=== PATIENT | female | born 1990 | race American Indian/Alaskan Native ===

== ENCOUNTER 2016-09-30 00:30 | Emergency (ER) | payer MEDICAID, OTHER ==
[2016-09-30 02:14] LABS: Basophils % (Auto) 0.7 % (0.0-1.8); Hematocrit 39.6 % (30.3-42.9); Hemoglobin 13.2 gm/dl (10.1-14.3); Mean Corpuscular HGB Conc 33 % (30-34); Mean Corpuscular Hemoglobin 31 pg (28-32); Mean Corpuscular Volume 92 fl (79-97); Platelet Count 284 K/mm3 (140-440); Red Blood Count 4.29 M/mm3 (3.65-5.03); White Blood Count 6.8 K/mm3 (4.5-11.0)
--- NOTE | 2016-09-30 03:15 | Ultrasound Report ---
FINAL REPORT PROCEDURE: US OB \T\lt; = 14 WEEKS FETUS TECHNIQUE: Real-time transabdominal and transvaginal sonography of the uterus, placenta, amniotic fluid, adnexa, and fetus was performed with image documentation. Measurements were obtained to determine age/size. M-mode Doppler was used to document heartbeat. CPT 22942 and 62096 HISTORY: vaginal bleeding COMPARISON: No prior studies are available for comparison. FINDINGS: ADDITIONAL GESTATION: None. CRL: 6.5 mm, which corresponds to a gestational age of: 6 weeks, 3 days. Yolk Sac: Normal. Embryonic Cardiac Activity: 118 beats per minute Gestational Sac: Normal. Amniotic fluid: Normal. Cervix: Normal. Right Ovary: Normal. Left Ovary: Normal. Estimated delivery date: 05/23/2017 Uterus and adnexa: Normal. IMPRESSION: 1. Single live intrauterine gestation at approximately 6 weeks, 3 days. 2. EDC by US 05/23/2017 3. Complete anatomic survey at 18-20 weeks suggested.
--- NOTE | 2016-09-30 03:16 | Ultrasound Report ---
FINAL REPORT PROCEDURE: US OB \T\lt; = 14 WEEKS FETUS TECHNIQUE: Real-time transabdominal and transvaginal sonography of the uterus, placenta, amniotic fluid, adnexa, and fetus was performed with image documentation. Measurements were obtained to determine age/size. M-mode Doppler was used to document heartbeat. CPT 13528 and 81344 HISTORY: vaginal bleeding COMPARISON: No prior studies are available for comparison. FINDINGS: ADDITIONAL GESTATION: None. CRL: 6.5 mm, which corresponds to a gestational age of: 6 weeks, 3 days. Yolk Sac: Normal. Embryonic Cardiac Activity: 118 beats per minute Gestational Sac: Normal. Amniotic fluid: Normal. Cervix: Normal. Right Ovary: Normal. Left Ovary: Normal. Estimated delivery date: 05/23/2017 Uterus and adnexa: Normal. IMPRESSION: 1. Single live intrauterine gestation at approximately 6 weeks, 3 days. 2. EDC by US 05/23/2017 3. Complete anatomic survey at 18-20 weeks suggested.
[2016-09-30] MEDS ORDERED: ZOFRAN ODT ONE (04:26)
[2016-09-30] MEDS ORDERED: ZOFRAN ODT PO ONE (04:28)
[2016-09-30 05:14] LABS: Bilirubin,Urine NEG (Negative); Blood,Urine NEG (Negative); Ketones,Urine NEG (Negative); Leukocyte Esterase,Urine NEG (Negative); Mucus,Urine 1+ /HPF; Nitrite,Urine NEG (Negative); Protein,Urine <15 mg/dL mg/dL (Negative); Urobilinogen,Urine < 2.0 mg/dL (<2.0); WBC,Urine < 1.0 /HPF (0.0-6.0)
--- NOTE | 2016-09-30 06:28 | Emergency Department Report ---
ED Female HPI - General Chief complaint: Vaginal Bleeding Stated complaint: W/SPOTTING Time Seen by Provider: 09/30/16 06:22 Source: patient, RN notes reviewed Mode of arrival: Ambulatory Limitations: No Limitations - History of Present Illness Initial comments: This is a 26-year-old female. She is previously unknown to me. She is 6, para 2. Last menstrual period is this previous July. She does not currently have a private [facility] physician. She denies chronic medical conditions, denies history of abdominal surgeries. She presents to the ER with cramping and vaginal bleeding. It started this morning. She also describes 7 episodes of nonbloody, nonbilious emesis. No sore throat, no headache, no neck pain, no chest pain. She also describes a few episodes of loose watery diarrhea. She denies irritative and obstructive urinary symptoms. MD Complaint: vaginal bleeding -: Gradual Location: suprapubic Severity: mild Quality: cramping Consistency: intermittent Improves with: other (pain increases with palpation and range of motion. Decreases with rest.) Are you Now?: Yes Associated Symptoms: denies other symptoms, vaginal bleeding, nausea/vomiting. denies: vaginal discharge - Related Data Sexually active: Yes Previous Rx's Medication Instructions Recorded Last Taken Type Cyclobenzaprine [Flexeril 10mg] 10 mg PO TID PRN #10 tablet 08/09/13 Unknown Rx HYDROcodone/APAP 5-325 [[place] 1 each PO Q6HR PRN #10 tablet 08/09/13 Unknown Rx 5-325 mg TAB] Ibuprofen [Motrin] 800 mg PO Q8H PRN #20 tablet 08/09/13 Unknown Rx Doxylamine/Pyridoxine HCl 1 each PO QHS PRN #30 tablet. 09/30/16 Unknown Rx [Conrad Blanchard 10-10 mg Tablet] Ryann Root [Ryann] 250 mg PO QID PRN #60 capsule 09/30/16 Unknown Rx Vit W-Ca,Fe,FA(<1 mg) 1 each PO QDAY #30 tablet 09/30/16 Unknown Rx [ Vitamins] Allergies Allergy/AdvReac Type Severity Reaction Status Date / Time No Known Allergies Allergy Verified 09/30/16 04:35 ED Review of Systems ROS: Stated complaint: W/SPOTTING Other details as noted in HPI Constitutional: denies: fever Eyes: denies: eye discharge ENT: denies: epistaxis Respiratory: denies: cough Cardiovascular: denies: chest pain Gastrointestinal: abdominal pain Genitourinary: as per HPI Musculoskeletal: as per HPI Skin: as per HPI Neurological: as per HPI Psychiatric: as per HPI Hematological/Lymphatic: as per HPI ED Past Medical Hx - Past Medical History Previous Medical History?: No - Surgical History Past Surgical History?: No - Social History Smoking Status: Current Every Day Smoker - Medications Home Medications: Home Medications Medication Instructions Recorded Confirmed Last Taken Type Cyclobenzaprine [Flexeril 10mg] 10 mg PO TID PRN #10 tablet 08/09/13 Unknown Rx HYDROcodone/APAP 5-325 [[place] 1 each PO Q6HR PRN #10 tablet 08/09/13 Unknown Rx 5-325 mg TAB] Ibuprofen [Motrin] 800 mg PO Q8H PRN #20 tablet 08/09/13 Unknown Rx Doxylamine/Pyridoxine HCl 1 each PO QHS PRN #30 tablet.dr 09/30/16 Unknown Rx [Diclegis Dr 10-10 mg Tablet] Ryann Root [Ryann] 250 mg PO QID PRN #60 capsule 09/30/16 Unknown Rx Vit W-Ca,Fe,FA(<1 mg) 1 each PO QDAY #30 tablet 09/30/16 Unknown Rx [ Vitamins] ED Physical Exam - General Limitations: No Limitations General appearance: alert, in no apparent distress - Head Head exam: Present: atraumatic, normocephalic - Eye Eye exam: Present: normal appearance, EOMI. Absent: nystagmus - ENT ENT exam: Present: normal exam, normal orophraynx, mucous membranes moist, normal external ear exam - Neck Neck exam: Present: normal inspection, full ROM. Absent: tenderness, meningismus - Respiratory Respiratory exam: Present: normal lung sounds bilaterally. Absent: respiratory distress, wheezes, rales, rhonchi, stridor, chest wall tenderness, accessory muscle use, decreased breath sounds, prolonged expiratory - Cardiovascular Cardiovascular Exam: Present: normal rhythm, bradycardia, normal heart sounds. Absent: systolic murmur, diastolic murmur, rubs, gallop - GI/Abdominal GI/Abdominal exam: Present: soft, normal bowel sounds. Absent: distended, tenderness, guarding, rebound, rigid, pulsatile mass - External exam: Present: normal external exam Speculum exam: Present: normal speculum exam. Absent: cervical discharge, vaginal bleeding, foreign body Bi-manual exam: Present: normal bi-manual exam, other (escorted by ALEM Nelson). Absent: cervical motion tendernes, adnexal tenderness, adnexal mass - Extremities Exam Extremities exam: Present: normal inspection, full ROM. Absent: calf tenderness - Back Exam Back exam: Present: normal inspection, full ROM. Absent: tenderness, CVA tenderness (R), CVA tenderness (L), muscle spasm, paraspinal tenderness, vertebral tenderness - Neurological Exam Neurological exam: Present: alert, oriented X3, normal gait, other (Extraocular movements intact. Tongue midline. No facial droop. Facial sensation intact to light touch in the V1, V2, V3 distribution bilaterally. 5 and 5 strength in 4 extremities.. Sensation is intact to light touch in 4 extremities.). Absent : motor sensory deficit - Psychiatric Psychiatric exam: Present: normal affect, normal mood - Skin Skin exam: Present: warm, dry, intact, normal color. Absent: rash ED Course Vital Signs 09/30/16 09/30/16 09/30/16 01:03 05:58 07:19 Temperature 98.9 F Pulse Rate 57 L 52 L 54 L Respiratory 20 18 18 Rate Blood Pressure 119/52 Blood Pressure 91/45 106/44 [Right] O2 Sat by Pulse 100 100 100 Oximetry ED Medical Decision Making - Lab Data Result diagrams: 09/30/16 01:21 Vital Signs 09/30/16 09/30/16 01:03 05:58 Temperature 98.9 F Pulse Rate 57 L 52 L Respiratory 20 18 Rate Blood Pressure 119/52 Blood Pressure 91/45 [Right] O2 Sat by Pulse 100 100 Oximetry Lab Results 09/30/16 09/30/16 09/30/16 Range/Units 01:21 01:21 01:21 WBC 6.8 (4.5-11.0) K/mm3 RBC 4.29 (3.65-5.03) M/mm3 Hgb 13.2 (10.1-14.3) gm/dl Hct 39.6 (30.3-42.9) % MCV 92 (79-97) fl MCH 31 (28-32) pg MCHC 33 (30-34) % RDW 13.0 L (13.2-15.2) % Plt Count 284 (140-440) K/mm3 Lymph % (Auto) 32.1 (13.4-35.0) % Becker % (Auto) 9.0 H (0.0-7.3) % Eos % (Auto) 1.0 (0.0-4.3) % Baso % (Auto) 0.7 (0.0-1.8) % Lymph # 2.2 (1.2-5.4) K/mm3 Becker # 0.6 (0.0-0.8) K/mm3 Eos # 0.1 (0.0-0.4) K/mm3 Baso # 0.0 (0.0-0.1) K/mm3 Seg Neutrophils % 57.2 (40.0-70.0) % Seg Neutrophils # 3.9 (1.8-7.7) K/mm3 HCG, Quant 14256 H (0-4) mIU/mL Urine Color (Yellow) Urine Turbidity (Clear) Urine pH (5.0-7.0) Ur Specific [place] (1.003-1.030) Urine Protein (Negative) mg/dL Urine Glucose (UA) (Negative) mg/dL Urine Ketones (Negative) mg/dL Urine Blood (Negative) Urine Nitrite (Negative) Urine Bilirubin (Negative) Urine Urobilinogen (<2.0) mg/dL Ur Leukocyte Esterase (Negative) Urine WBC (Auto) (0.0-6.0) /HPF Urine RBC (Auto) (0.0-6.0) /HPF U Epithel Cells (Auto) (0-13.0) /HPF Urine Mucus /HPF Blood Type O POSITIVE Antibody Screen TNR GILBERTO Antibody Screen Negative 09/30/16 Range/Units 04:55 WBC (4.5-11.0) K/mm3 RBC (3.65-5.03) M/mm3 Hgb (10.1-14.3) gm/dl Hct (30.3-42.9) % MCV (79-97) fl MCH (28-32) pg MCHC (30-34) % RDW (13.2-15.2) % Plt Count (140-440) K/mm3 Lymph % (Auto) (13.4-35.0) % Becker % (Auto) (0.0-7.3) % Eos % (Auto) (0.0-4.3) % Baso % (Auto) (0.0-1.8) % Lymph # (1.2-5.4) K/mm3 Becker # (0.0-0.8) K/mm3 Eos # (0.0-0.4) K/mm3 Baso # (0.0-0.1) K/mm3 Seg Neutrophils % (40.0-70.0) % Seg Neutrophils # (1.8-7.7) K/mm3 HCG, Quant (0-4) mIU/mL Urine Color Yellow (Yellow) Urine Turbidity Clear (Clear) Urine pH 6.0 (5.0-7.0) Ur Specific [place] 1.030 (1.003-1.030) Urine Protein <15 mg/dl (Negative) mg/dL Urine Glucose (UA) Neg (Negative) mg/dL Urine Ketones Neg (Negative) mg/dL Urine Blood Neg (Negative) Urine Nitrite Neg (Negative) Urine Bilirubin Neg (Negative) Urine Urobilinogen < 2.0 (<2.0) mg/dL Ur Leukocyte Esterase Neg (Negative) Urine WBC (Auto) < 1.0 (0.0-6.0) /HPF Urine RBC (Auto) 1.0 (0.0-6.0) /HPF U Epithel Cells (Auto) 1.0 (0-13.0) /HPF Urine Mucus 1+ /HPF Blood Type Antibody Screen GILBERTO Antibody Screen - Radiology Data Radiology results: report reviewed, image reviewed Transvaginal ultrasound demonstrates a single live intrauterine gestation at 6 weeks and 3 days. - Medical Decision Making Differential diagnosis: Threatened miscarriage, urinary tract infection, enteritis, nausea and vomiting of Assessment and plan: 22-year-old female with reported history of cramping, vaginal bleeding, nausea, vomiting and diarrhea. She is afebrile, with reassuring vital signs, currently her blood pressure is 105/54. She is tolerating the feeds, her physical exam is benign, her gynecologic exam is benign. She will be started on appropriate nausea medication, vitamins, and she is instructed to follow-up with an outpatient radiagraph operator. She will be discharged at this time, she is tolerating liquid feeds. Return precautions are reviewed. Critical care attestation.: If time is entered above; I have spent that time in minutes in the direct care of this critically ill patient, excluding procedure time. ED Disposition Clinical Impression: Miscarriage Disposition: DC-01 TO HOME OR SELFCARE Is pt being admited?: No Does the pt Need Aspirin: No Condition: Stable Instructions: Threatened Miscarriage (ED) Additional Instructions: Rest and avoid heavy lifting. Do not engage in sexual activity or vigorous physical activity until cleared by an [facility] doctor. Follow up with an [facility] doctor as soon as possible to initiate care. Take the nausea medication and vitamins as directed. Return to the ER right away with new pain, worsened pain, migration of pain, bleeding more than 2 pads soaked through and through per hour, dizziness, lightheadedness, chest pain, shortness of breath, confusion. Prescriptions: Doxylamine/Pyridoxine HCl [oCnrad Blanchard 10-10 mg Tablet] 1 each PO QHS PRN #30 tablet. PRN Reason: Nausea Ryann Root [Ryann] 250 mg PO QID PRN #60 capsule PRN Reason: Nausea Vit W-Ca,Fe,FA(<1 mg) [ Vitamins] 1 each PO QDAY #30 tablet Referrals: PRIMARY CAREMD [Primary Care Provider] - 3-5 Days [facility] [Provider Group] - 3-5 Days [facility] [[facility]] - 3-5 Days [facility] [Provider Group] - 3-5 Days Forms: Work/School Release Form(ED)
[2016-09-30 07:24] VITALS: BP 106/44
== END 2016-09-30 07:23 | disposition home or self-care (01) ==
LOC: ED 00:30
DX: O03.9 Complete or unspecified spontaneous abortion without complication (principal); F17.200 Nicotine dependence, unspecified, uncomplicated
CPT/HCPCS: 36415; 76801; 76817; 81001; 84702; 85025; 86850; 86900; 86901; Q0162

== ENCOUNTER 2017-10-07 15:33 | Emergency (ER) | payer OTHER ==
--- NOTE | 2017-10-07 17:06 | Emergency Department Report ---
ED General Adult HPI - General Chief complaint: Extremity Injury, Lower Stated complaint: RIGHT LEG SWOLLEN/LOWER BACK PAIN Time Seen by Provider: 10/07/17 16:53 Source: patient Mode of arrival: Ambulatory Limitations: No Limitations - History of Present Illness Initial comments: Patient reports that her right leg is swollen since Friday. She said she has 2 jobs that she has a stent in her feet a lot. 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 She is also complaining of lower back pain. Her last menstrual period was 08/04/2016 and she is requesting a test also. Her leg pain is 7 out of 10 and achy. She said it goes down when she puts her legs up but pain is better with rest and worse with walking. Denies any nausea or vomiting. Denied any numbness certainly into her extremities. Denies any loss of bowel or bladder function.. Pain is achy and intermittent. No medication taken prior to coming to the emergency room. She denies any personal history of blood clot or any family history of blood clot. She denies any clotting disorder. Denies any fever or chills. Denies any chest pain or shortness of breath. Denies any long distance travel or any recent convalescent. MD Complaint: right leg pain and lower back pain Onset/Timin -: week(s) Location: back, right, lower extremity Radiation: non-radiation Severity scale (0 -10): 10 Quality: aching Consistency: intermittent Improves with: rest Worsens with: movement Associated Symptoms: denies: confusion, chest pain, cough, diaphoresis, fever/ chills, headaches, loss of appetite, malaise, nausea/vomiting, rash, seizure, shortness of breath, syncope, weakness Treatments Prior to Arrival: none - Related Data Previous Rx's Medication Instructions Recorded Last Taken Type Cyclobenzaprine [Flexeril 10mg] 10 mg PO TID PRN #10 tablet 08/09/13 Unknown Rx HYDROcodone/APAP 5-325 [[place] 1 each PO Q6HR PRN #10 tablet 08/09/13 Unknown Rx 5-325 mg TAB] Ibuprofen [Motrin] 800 mg PO Q8H PRN #20 tablet 08/09/13 Unknown Rx Doxylamine Succinate/Vit B6 1 each PO QHS PRN #30 tablet. 09/30/16 Unknown Rx [Conrad Blanchard 10-10 mg Tablet] Ryann Root [Ryann] 250 mg PO QID PRN #60 capsule 09/30/16 Unknown Rx Vit Calc,Iron,Folic 1 each PO QDAY #30 tablet 09/30/16 Unknown Rx [ Vitamins] Ibuprofen [Motrin] 600 mg PO Q8H PRN #12 tablet 10/07/17 Unknown Rx Allergies Allergy/AdvReac Type Severity Reaction Status Date / Time No Known Allergies Allergy Verified 10/07/17 15:37 ED Review of Systems ROS: Stated complaint: RIGHT LEG SWOLLEN/LOWER BACK PAIN Other details as noted in HPI Constitutional: denies: chills, fever Eyes: denies: eye pain, eye discharge, vision change ENT: denies: ear pain, throat pain Respiratory: denies: cough, shortness of breath, wheezing Cardiovascular: edema. denies: chest pain, palpitations, syncope Gastrointestinal: denies: abdominal pain, nausea, vomiting, diarrhea, constipation, hematemesis Genitourinary: abnormal menses. denies: urgency, dysuria, frequency, hematuria , discharge Musculoskeletal: back pain, arthralgia. denies: joint swelling Skin: denies: rash, lesions Neurological: denies: headache, weakness, paresthesias, abnormal gait, vertigo ED Past Medical Hx - Past Medical History Previous Medical History?: No - Surgical History Past Surgical History?: No - Family History Family history: hypertension - Social History Smoking Status: Current Every Day Smoker Substance Use Type: Alcohol - Medications Home Medications: Home Medications Medication Instructions Recorded Confirmed Last Taken Type Cyclobenzaprine [Flexeril 10mg] 10 mg PO TID PRN #10 tablet 08/09/13 Unknown Rx HYDROcodone/APAP 5-325 [[place] 1 each PO Q6HR PRN #10 tablet 08/09/13 Unknown Rx 5-325 mg TAB] Ibuprofen [Motrin] 800 mg PO Q8H PRN #20 tablet 08/09/13 Unknown Rx Doxylamine Succinate/Vit B6 1 each PO QHS PRN #30 tablet. 09/30/16 Unknown Rx [Conrad Blanchard 10-10 mg Tablet] Ryann Root [Ryann] 250 mg PO QID PRN #60 capsule 09/30/16 Unknown Rx Vit Calc,Iron,Folic 1 each PO QDAY #30 tablet 09/30/16 Unknown Rx [ Vitamins] Ibuprofen [Motrin] 600 mg PO Q8H PRN #12 tablet 10/07/17 Unknown Rx ED Physical Exam - General Limitations: No Limitations General appearance: alert, in no apparent distress - Head Head exam: Present: atraumatic, normocephalic, normal inspection - Eye Eye exam: Present: normal appearance, PERRL, EOMI Pupils: Present: normal accommodation - ENT ENT exam: Present: normal exam, normal orophraynx, mucous membranes moist, TM's normal bilaterally, normal external ear exam - Neck Neck exam: Present: normal inspection, full ROM, other. Absent: tenderness, lymphadenopathy - Respiratory Respiratory exam: Present: normal lung sounds bilaterally. Absent: respiratory distress, chest wall tenderness - Cardiovascular Cardiovascular Exam: Present: regular rate, normal rhythm, normal heart sounds. Absent: systolic murmur, diastolic murmur - GI/Abdominal GI/Abdominal exam: Present: soft, normal bowel sounds. Absent: distended, tenderness, guarding, rebound, rigid, organomegaly, mass, bruit - Extremities Exam Extremities exam: Present: normal inspection, full ROM, normal capillary refill , other (swelling to leg otherwise No cce. + 2 pulses in all extremities, no neurovascular compromise). Absent: tenderness, pedal edema, joint swelling - Back Exam Back exam: Present: normal inspection, full ROM, CVA tenderness (L), other ( ambulates without any difficulties). Absent: tenderness, CVA tenderness (R), muscle spasm, paraspinal tenderness, vertebral tenderness, rash noted - Expanded Back Exam Expanded Back exam: Absent: saddle anesthesia Back exam: Negative Straight Leg Raising: Left, Right - Neurological Exam Neurological exam: Present: alert, oriented X3, normal gait, motor sensory deficit. Absent: reflexes normal - Psychiatric Psychiatric exam: Present: normal affect, normal mood - Skin Skin exam: Present: warm, dry, intact, normal color. Absent: rash ED Course Vital Signs 10/07/17 15:37 Temperature 98.3 F Pulse Rate 83 Respiratory 17 Rate Blood Pressure 136/73 O2 Sat by Pulse 99 Oximetry - Reevaluation(s) Reevaluation #1: 10/07/17 19:00 Patient stable throughout ED course. Urinalysis and urine test is negative. Doppler ultrasound is negative ED Medical Decision Making - Lab Data Lab Results 10/07/17 Range/Units Unknown Urine Color Yellow (Yellow) Urine Turbidity Clear (Clear) Urine pH 5.0 (5.0-7.0) Ur Specific [place] 1.021 (1.003-1.030) Urine Protein <15 mg/dl (Negative) mg/dL Urine Glucose (UA) Neg (Negative) mg/dL Urine Ketones Neg (Negative) mg/dL Urine Blood Neg (Negative) Urine Nitrite Neg (Negative) Urine Bilirubin Neg (Negative) Urine Urobilinogen < 2.0 (<2.0) mg/dL Ur Leukocyte Esterase Neg (Negative) Urine WBC (Auto) 1.0 (0.0-6.0) /HPF Urine RBC (Auto) 3.0 (0.0-6.0) /HPF U Epithel Cells (Auto) 2.0 (0-13.0) /HPF Urine Mucus Few /HPF Urine HCG, Qual Negative (Negative) - Radiology Data Radiology results: report reviewed HOWIE CAN Female : 1990 [facility]# [id number] 10/07/17 17:48 - Radiology Dept. Note by REGGIE RIVERA [facility] Num: [id number] : 1990 Patient Age: 27 VASCULAR LAB.PRELIMINARY REPORT. RLE VENOUS DUPLEX DONE. NO EVIDENCE OF DVT/SVT IN VESSELS VISUALIZED. Initialized on 10/07/17 17:48 - END OF NOTE - Medical Decision Making This is a 27-year-old female here reports that she has been having a right leg swelling and for the last week. She says she has 2 jobs and she has to stand a lot and she noticed that when she stands a lot her right leg swells but when she lays down and elevate swelling goes down. She denies any history of any medical problems. Requested test because she has not had a period since 08/04/2016. She denies any shortness of breath or chest pain or any risk factors for clots. Patient was seen and examined by myself. Physical findings for mild swelling to right leg without any pedal edema otherwise extremity exam is normal with 2+ pedal pulses. No edema or calf tenderness. She has no neurovascular compromise. Lungs and heart exam is normal. Abdomen is normal. Patient back exam without any vertebral or paraspinal tenderness. She has full range of motion to her back. Urinalysis and urine test done and patient urine is normal and her test is negative. She had Doppler studies to her right lower extremity which shows no DVT or SVT and this was indicated to patient and she was understanding. I told patient she does not have to take rest. And elevate her leg more. I thought put her on anti-inflammatory. Patient has no signs of varicosities. I discussed the patient is to follow-up with orthopedic doctor and primary care physician and if she does not have a primary care physician she should follow up at [facility] which she voiced understanding. Assessment/plan Arthralgia right leg -will be placed on Motrin and referred to orthopedic and primary care Edema right leg-patient had Doppler ultrasound right lower extremity which shows no DVT or SVT. Suspect this is from prolonged standing. Patient discharged home with prescriptions for Motrin. Her vital signs are stable she is a febrile and in no acute distress. I discussed with her that she needs to follow-up for orthopedic follow-up and also to her primary care doctor in 2-3 days. She voiced understanding. - Differential Diagnosis DVT, varicosity, generalized edema, musculoskeletal pain, UTI Critical care attestation.: If time is entered above; I have spent that time in minutes in the direct care of this critically ill patient, excluding procedure time. ED Disposition Clinical Impression: Arthralgia of right lower leg, Swelling of right lower extremity Disposition: DC-01 TO HOME OR SELFCARE Is pt being admited?: No Does the pt Need Aspirin: No Condition: Stable Instructions: Arthralgia (ED), Leg Edema (ED) Additional Instructions: Please follow up with primary care did doctor or [facility] if he do not have a primary care doctor in 2-3 days Please follow up with orthopedic doctor as instructed Motrin for pain and try to elevate your legs as much as possible to relieve swelling. Referrals: ESTEBAN SAHU MD [Primary Care Provider] - 2-3 Days [facility] [Outside] - 2-3 Days IFEOMA HAMMOND MD [Staff Physician] - 2-3 Days Forms: Work/School Release Form(ED)
[2017-10-07 17:35] LABS: Bilirubin,Urine NEG (Negative); Blood,Urine NEG (Negative); Color,Urine Yellow (Yellow); Mucus,Urine FEW /HPF; Protein,Urine <15 mg/dL mg/dL (Negative); Urobilinogen,Urine < 2.0 mg/dL (<2.0)
[2017-10-07 17:40] LABS: HCG Qualitative,Urine Negative (Negative)
[2017-10-07 19:28] VITALS: BP 126/72
== END 2017-10-07 19:25 | disposition home or self-care (01) ==
LOC: ED 15:33
DX: M79.661 Pain in right lower leg (principal); F17.200 Nicotine dependence, unspecified, uncomplicated
CPT/HCPCS: 81001; 81025; 99284

== ENCOUNTER 2019-06-07 09:52 | Emergency (ER) | payer SELFPAY ==
[2019-06-07 10:04] VITALS: BP 120/80
--- NOTE | 2019-06-07 12:12 | Emergency Department Report ---
Minor Respiratory - HPI Chief Complaint: Upper Respiratory Infection Stated Complaint: BODY ACHES/COUGH/ Time Seen by Provider: 06/07/19 11:30 Minor Respiratory: Yes Sore Throat, Yes Able to Tolerate Fluids, Yes Cough, No Rhinorrhea, No Ear Pain, No Sick Contacts (Intermittent), No Hemoptysis, No Chest Pain, No Shortness of Breath, No Fever Other History: This is a 29-year-old female with no prior medical history who presents the ED complaining of throat pain nasal sinus congestion and irritation for the past 2 days. Patient also admits to intermittent dry coughing. Patient denies fever/chills/nausea vomiting/chest pain/shortness of breath or any other symptoms. ED Review of Systems ROS: Stated complaint: BODY ACHES/COUGH/ Other details as noted in HPI Comment: All other systems reviewed and negative ED Past Medical Hx - Past Medical History Previous Medical History?: No - Surgical History Past Surgical History?: No - Social History Smoking Status: Current Every Day Smoker Substance Use Type: Marijuana - Medications Home Medications: Home Medications Medication Instructions Recorded Confirmed Last Taken Type Cyclobenzaprine [Flexeril 10mg] 10 mg PO TID PRN #10 tablet 08/09/13 Unknown Rx HYDROcodone/APAP 5-325 [[place] 1 each PO Q6HR PRN #10 tablet 08/09/13 Unknown Rx 5-325 mg TAB] Ibuprofen [Motrin] 800 mg PO Q8H PRN #20 tablet 08/09/13 Unknown Rx Doxylamine Succinate/Vit B6 1 each PO QHS PRN #30 tablet. 09/30/16 Unknown Rx [Conrad Blanchard 10-10 mg Tablet] Ryann Root [Ryann] 250 mg PO QID PRN #60 capsule 09/30/16 Unknown Rx Vit Calc,Iron,Folic 1 each PO QDAY #30 tablet 09/30/16 Unknown Rx [ Vitamins] Ibuprofen [Motrin] 600 mg PO Q8H PRN #12 tablet 10/07/17 Unknown Rx Amoxicillin/Potassium Clav 1 each PO BID #20 tablet 06/07/19 Unknown Rx [Augmentin 875-125 Tablet] Minor Respiratory Exam - Exam General: Vital signs noted. No distress. Alert and acting appropriately. HEENT: Yes Moist Mucous Membranes, Yes Frontal Tenderness, Yes Maxillary Tend erness, No Pharyngeal Erythema, No Pharyngeal Exudates, No Rhinorrhea, No Conjuctival Injection Ear: Neither TM Bulge, Neither TM Erythema, Neither EAC Pain, Neither EAC Disch arge Neck: Yes Supple, No Adenopathy Lungs: Yes Good Air Exchange, No Wheezes, No [place], No Stridor, No Cough, No Labored Respirations, No Retractions, No Use of Accessory Muscles, No Other Abnormal Lung Sounds Heart: Yes Regular, No Murmur Abdomen: Yes Normal Bowel Sounds, No Tenderness, No Peritoneal Signs Skin: No Rash, No Edema Neurologic: Alert and oriented, no deficits. Musculoskeletal: Unremarkable. ED Course Vital Signs 06/07/19 10:02 Temperature 98.4 F Pulse Rate 89 Respiratory 18 Rate Blood Pressure 120/80 O2 Sat by Pulse 98 Oximetry ED Medical Decision Making - Medical Decision Making This 29-year-old female presents with sinusitis Discussed antibiotics for treatment. Discussed with patient to take Claritin or Zyrtec as needed for allergy induced sinusitis. Vital signs are normal patient is in no acute distress. Patient had no neurological deficit nor does she have any respiratory distress during ED stay. I discussed with patient that if symptoms worsen to return to ED immediately. Otherwise follow-up with her primary care physician in 3 days Critical care attestation.: If time is entered above; I have spent that time in minutes in the direct care of this critically ill patient, excluding procedure time. ED Disposition Clinical Impression: Sinusitis Disposition: -01 TO HOME OR SELFCARE Is pt being admited?: No Does the pt Need Aspirin: No Condition: Stable Instructions: Sinusitis (ED) Additional Instructions: Make sure to follow up with the primary care physician as discussed. Take all your medications as you've been prescribed. If you have any worsening symptoms or develop new symptoms please return to ED immediately. Prescriptions: Amoxicillin/Potassium Clav [Augmentin 875-125 Tablet] 1 each PO BID #20 tablet Referrals: PRIMARY CARE, [Primary Care Provider] - 3-5 Days [facility] [Outside] - 3-5 Days [facility] [Outside] - 3-5 Days Forms: Accompanied Note, Work/School Release Form(ED) Time of Disposition: 12:45
== END 2019-06-07 13:06 | disposition home or self-care (01) ==
LOC: ED 09:52
DX: J32.9 Chronic sinusitis, unspecified (principal); F17.200 Nicotine dependence, unspecified, uncomplicated; F12.90 Cannabis use, unspecified, uncomplicated; Z79.899 Other long term (current) drug therapy
CPT/HCPCS: 99282

== ENCOUNTER 2021-07-27 09:46 | Emergency (ER) | payer SELFPAY ==
[2021-07-27 11:09] LABS: Bacteria,Urine 1+ /HPF (Negative); Bilirubin,Urine NEG (Negative); Blood,Urine NEG (Negative); Color,Urine Yellow (Yellow); Protein,Urine <15 mg/dL mg/dL (Negative); Urobilinogen,Urine < 2.0 mg/dL (<2.0)
[2021-07-27] MEDS ORDERED: CYCLOBENZAPRINE 10 MG TAB PO ONE (12:37)
[2021-07-27] MEDS ORDERED: KETOROLAC 10 MG TAB PO ONE (12:37)
[2021-07-27] MEDS ORDERED: oxyCODONE /ACETAMINOPHEN 5-325MG TAB PO ONE (12:37)
[2021-07-27] MEDS ORDERED: predniSONE 20 MG TAB PO ONE (12:37)
--- NOTE | 2021-07-27 12:43 | Emergency Department Report ---
ED Back Pain/Injury HPI - General Chief Complaint: Back Pain/Injury Stated Complaint: LOWER BACK PAIN Time Seen by Provider: 07/27/21 12:37 Source: patient Limitations: No Limitations - History of Present Illness Initial Comments: 31-year-old black female with no past medical history presents to the emergency department for evaluation of 3-day history of lower back pain. She states that pain started out of nowhere and is worse when she moves and bends. She denies injury or trauma. She denies fever, abdominal pain, dysuria, and vaginal discharge. She states that pain is 10 out of 10 at its worst and has not been relieved by Tylenol. Last menstrual period July 07. Complaint: back pain -: Gradual, days(s) (3) Similar Symptoms Previously: No Place: home Radiation: none Severity: severe Severity scale (0 -10): 10 Quality: aching Consistency: constant Worsens With: movement Associated Symptoms: denies: confusion, weakness, chest pain, numbness, difficulty walking, cough, difficulty urinating, diaphoresis, incontinence, fever/chills, constipation, headaches, abdominal pain, loss of appetite, malaise, nausea/vomiting, rash, seizure, shortness of breath, syncope - Related Data Previous Rx's Medication Instructions Recorded Last Taken Type Cyclobenzaprine [Flexeril 10mg] 10 mg PO TID PRN #10 tablet 08/09/13 Unknown Rx HYDROcodone/APAP 5-325 [[place] 1 each PO Q6HR PRN #10 tablet 08/09/13 Unknown Rx 5-325 mg TAB] Ibuprofen [Motrin] 800 mg PO Q8H PRN #20 tablet 08/09/13 Unknown Rx Doxylamine Succinate/Vit B6 1 each PO QHS PRN #30 tablet. 09/30/16 Unknown Rx [Conrad Blanchard 10-10 mg Tablet] Ryann Root [Ryann] 250 mg PO QID PRN #60 capsule 09/30/16 Unknown Rx Vit Calc,Iron,Folic 1 each PO QDAY #30 tablet 09/30/16 Unknown Rx [ Vitamins] Ibuprofen [Motrin] 600 mg PO Q8H PRN #12 tablet 10/07/17 Unknown Rx Amoxicillin/Potassium Clav 1 each PO BID #20 tablet 06/07/19 Unknown Rx [Augmentin 875-125 Tablet] Cyclobenzaprine [Flexeril] 10 mg PO TID PRN #30 tab 07/27/21 Unknown Rx Lidocaine [Lidoderm] 1 each TP 10 PRN #10 patch 07/27/21 Unknown Rx Naproxen [Naprosyn] 500 mg PO BID #14 tab 07/27/21 Unknown Rx Allergies Allergy/AdvReac Type Severity Reaction Status Date / Time No Known Allergies Allergy Verified 10/07/17 15:37 ED Review of Systems ROS: Stated complaint: LOWER BACK PAIN Other details as noted in HPI Comment: All other systems reviewed and negative Constitutional: denies: chills, fever Respiratory: denies: cough, orthopnea, shortness of breath, SOB with exertion, SOB at rest, stridor, wheezing Cardiovascular: denies: chest pain, palpitations Gastrointestinal: denies: abdominal pain, nausea, vomiting Genitourinary: denies: urgency, dysuria, frequency, hematuria, discharge Musculoskeletal: back pain. denies: arthralgia, myalgia Skin: denies: rash, lesions Neurological: denies: headache, weakness ED Past Medical Hx - Social History Smoking Status: Current Every Day Smoker Substance Use Type: Marijuana - Medications Home Medications: Home Medications Medication Instructions Recorded Confirmed Last Taken Type Cyclobenzaprine [Flexeril 10mg] 10 mg PO TID PRN #10 tablet 08/09/13 Unknown Rx HYDROcodone/APAP 5-325 [[place] 1 each PO Q6HR PRN #10 tablet 08/09/13 Unknown Rx 5-325 mg TAB] Ibuprofen [Motrin] 800 mg PO Q8H PRN #20 tablet 08/09/13 Unknown Rx Doxylamine Succinate/Vit B6 1 each PO QHS PRN #30 tablet. 09/30/16 Unknown Rx [Conrad Blanchard 10-10 mg Tablet] Ryann Root [Ryann] 250 mg PO QID PRN #60 capsule 09/30/16 Unknown Rx Vit Calc,Iron,Folic 1 each PO QDAY #30 tablet 09/30/16 Unknown Rx [ Vitamins] Ibuprofen [Motrin] 600 mg PO Q8H PRN #12 tablet 10/07/17 Unknown Rx Amoxicillin/Potassium Clav 1 each PO BID #20 tablet 06/07/19 Unknown Rx [Augmentin 875-125 Tablet] Cyclobenzaprine [Flexeril] 10 mg PO TID PRN #30 tab 07/27/21 Unknown Rx Lidocaine [Lidoderm] 1 each TP 10 PRN #10 patch 07/27/21 Unknown Rx Naproxen [Naprosyn] 500 mg PO BID #14 tab 07/27/21 Unknown Rx ED Physical Exam - General Limitations: No Limitations General appearance: alert, in no apparent distress - Head Head exam: Present: atraumatic, normocephalic - Eye Eye exam: Present: normal appearance. Absent: conjunctival injection - Neck Neck exam: Present: normal inspection, full ROM. Absent: tenderness, lymphadenopathy - Respiratory Respiratory exam: Present: normal lung sounds bilaterally. Absent: respiratory distress, wheezes, rales, rhonchi, stridor, chest wall tenderness - Cardiovascular Cardiovascular Exam: Present: regular rate, normal heart sounds - GI/Abdominal GI/Abdominal exam: Present: soft, normal bowel sounds. Absent: distended, tenderness, guarding, rebound, rigid - Extremities Exam Extremities exam: Present: normal inspection, full ROM, normal capillary refill. Absent: tenderness, pedal edema, joint swelling, calf tenderness - Back Exam Back exam: Present: normal inspection, tenderness (Left lower). Absent: CVA tenderness (R), CVA tenderness (L), paraspinal tenderness, vertebral tenderness - Expanded Back Exam Expanded Back exam: Absent: saddle anesthesia Back exam: Negative Straight Leg Raising: Left, Right - Neurological Exam Neurological exam: Present: alert, oriented X3, normal gait - Psychiatric Psychiatric exam: Present: normal affect, normal mood - Skin Skin exam: Present: warm, dry, intact, normal color ED Course Vital Signs 07/27/21 10:11 Temperature 98.4 F Pulse Rate 91 H Respiratory 20 Rate Blood Pressure 101/57 [Left] O2 Sat by Pulse 97 Oximetry ED Medical Decision Making - Medical Decision Making 31-year-old black female with no past medical history presents to the emergency department for evaluation of 3-day history of lower back pain. She states that pain started out of nowhere and is worse when she moves and bends. She denies injury or trauma. She denies fever, abdominal pain, dysuria, and vaginal discharge. She states that pain is 10 out of 10 at its worst and has not been relieved by Tylenol. Last menstrual period July 07. Urine negative for urinary tract infection. Patient noted to have only musculoskeletal pain on exam. She will be treated in the emergency department with prednisone 60 mg p.o., Toradol 10 mg p.o., 1 Percocet 5/325, and Flexeril 10 mg p.o. She will be discharged home with naproxen, Flexeril, and Lidoderm patch to use as needed for pain. She is advised to take medications as prescribed and follow-up with her primary care provider if no improvement or worsening symptoms. She verbalized understanding of and agreement with plan of care. Laboratory Last Values Urine Color Yellow (Yellow) 07/27/21 Unknown Urine Turbidity Clear (Clear) 07/27/21 Unknown Urine pH 8.0 (5.0-7.0) H 07/27/21 Unknown Ur Specific [place] 1.011 (1.003-1.030) 07/27/21 Unknown Urine Protein <15 mg/dl mg/dL (Negative) 07/27/21 Unknown Urine Glucose (UA) Neg mg/dL (Negative) 07/27/21 Unknown Urine Ketones Neg mg/dL (Negative) 07/27/21 Unknown Urine Blood Neg (Negative) 07/27/21 Unknown Urine Nitrite Neg (Negative) 07/27/21 Unknown Urine Bilirubin Neg (Negative) 07/27/21 Unknown Urine Urobilinogen < 2.0 mg/dL (<2.0) 07/27/21 Unknown Ur Leukocyte Esterase Neg (Negative) 07/27/21 Unknown Urine WBC (Auto) 2.0 /HPF (0.0-6.0) 07/27/21 Unknown Urine RBC (Auto) 1.0 /HPF (0.0-6.0) 07/27/21 Unknown U Epithel Cells (Auto) 4.0 /HPF (0-13.0) 07/27/21 Unknown Urine Bacteria (Auto) 1+ /HPF (Negative) 07/27/21 Unknown Critical care attestation.: If time is entered above; I have spent that time in minutes in the direct care of this critically ill patient, excluding procedure time. ED Disposition Clinical Impression: Back pain Qualifiers: Back pain location: low back pain Chronicity: acute Back pain laterality: left Sciatica presence: without sciatica Qualified Code(s): M54.50 - Low back pain, unspecified Disposition: 01 HOME / SELF CARE / HOMELESS Is pt being admited?: No Does the pt Need Aspirin: No Condition: Stable Instructions: Acute Back Pain, Adult, Back Exercises, [id number], Low Back Sprain or Strain Rehab-SportsMed Additional Instructions: Take medications as prescribed. Follow-up with primary care provider if no improvement or worsening symptoms. Return to the emergency department as needed. Prescriptions: Cyclobenzaprine [Flexeril] 10 mg PO TID PRN #30 tab PRN Reason: Muscle Spasm Lidocaine [Lidoderm] 1 each TP 10 PRN #10 patch PRN Reason: pain Naproxen [Naprosyn] 500 mg PO BID #14 tab Referrals: OSCAR MICHAUD MD [Staff Physician] - 3-5 Days Forms: Work/School Release Form(ED) Time of Disposition: 12:48
[2021-07-27 13:31] VITALS: BP 124/78
== END 2021-07-27 13:30 | disposition home or self-care (01) ==
LOC: ED 09:46
DX: M54.50 Low back pain, unspecified (principal); F17.200 Nicotine dependence, unspecified, uncomplicated; F10.20 Alcohol dependence, uncomplicated
CPT/HCPCS: 81001; 99283